=== PATIENT | female | born 1950 | race Caucasian/White ===

== ENCOUNTER → 2016-05-28 10:08 | Outpatient (CLI) | payer MEDICARE | END | disposition home or self-care (01) | LOC: D.CT 10:08 | DX: M79.605 Pain in left leg (principal); M79.604 Pain in right leg; M54.5 Low back pain ==

== ENCOUNTER → 2016-09-04 18:17 | Outpatient (CLI) | payer MEDICARE | END | disposition home or self-care (01) | LOC: D.MAMMO 13:15 | DX: Z12.31 Encounter for screening mammogram for malignant neoplasm of breast (principal) ==

== ENCOUNTER 2017-01-17 18:47 | Observation (INO) | payer MEDICARE ==
[2017-01-17 19:00] VITALS: BP 172/61
[2017-01-17] MEDS ORDERED: TOBRADEX EYE DRO5 ML EACH EYE (19:33)
[2017-01-17] MEDS ORDERED: METOPROLOL TART25 MG PO (19:36)
[2017-01-17] MEDS ORDERED: LIPITOR40 MG PO (19:37)
[2017-01-17] MEDS ORDERED: CELEXA20 MG PO (19:37)
[2017-01-17] MEDS ORDERED: PLAVIX75 MG PO (19:39)
[2017-01-17] MEDS ORDERED: REQUIP1 MG PO (19:47)
[2017-01-17] MEDS ORDERED: NEURONTIN 300300 MG PO (19:47)
[2017-01-17] MEDS ORDERED: BACLOFEN10 MG PO (19:48)
[2017-01-17] MEDS ORDERED: LYRICA50 MG PO (19:48)
[2017-01-17] MEDS ORDERED: HYDROCODON-ACE1 EAC7 PO (19:48)
[2017-01-17] MEDS ORDERED: SKELAXIN800 MG PO (19:49)
[2017-01-17] MEDS ORDERED: BAYER CHEWABLE81 MG PO (19:51)
[2017-01-17] MEDS ORDERED: CADUET 2.5 MG/11 TAB PO (20:01)
[2017-01-17] MEDS ORDERED: LOMOTIL TABLET1 TAB PO (20:02)
[2017-01-17] MEDS ORDERED: DUREZOL5 ML EACH EYE (20:03)
[2017-01-17 20:51] LABS: BASOPHILS 0.3 % (0-2); EOSINOPHILS 1.6 % (0-7); HEMATOCRIT 33.3 % (36.0-48.0); HEMOGLOBIN 10.9 g/dL (12-16); IMMATURE GRANULOCYTES 0.5 % (0-5); LYMPHOCYTES 21.2 % (15-50); MCH 30.9 pg (26.0-34.0); MCHC 32.7 g/dL (31.0-37.0); MCV 94.3 fL (80.0-100.0); MEAN PLATELET VOLUME 10.2 fL (7.4-10.4); MONOCYTES 11.5 % (2-11); NEUTROPHILS 64.9 % (40-80); PLATELET COUNT 273 10x3/uL (130-400); RBC 3.53 10x6/uL (4.00-5.40); RDW 14.3 % (11.5-14.5); WBC 7.3 10x3/uL (4.8-10.8)
[2017-01-17 21:02] LABS: ALBUMIN 3.2 g/dL (3.4-5.0); ANION GAP 12.8 mmol/L (8-16); BILIRUBIN - TOTAL 0.33 mg/dL (0.2-1.3); CALCIUM 8.9 mg/dL (8.5-10.1); CARBON DIOXIDE 27.6 mmol/L (21.0-32.0); CREATININE - SERUM 0.9 mg/dL (0.6-1.3); POTASSIUM - SERUM 3.4 mmol/L (3.5-5.1)
[2017-01-17 21:03] LABS: PROTEIN - SERUM 7.2 g/dL (6.4-8.2)
[2017-01-17 21:13] LABS: THYROID STIMULATING HORMONE 0.52 uIU/mL (0.36-3.74)
[2017-01-18] VITALS: BP 147/52
--- NOTE | 2017-01-18 00:58 | NUR ---
PT HAS [facility]WN [facility] ON FROM HOME
--- NOTE | 2017-01-18 01:51 | NUR ---
RESTING WITH EYES CLOSED. RR EVEN U/L. NO S/S OF DISCOMFORT. CL IN REACH.
--- NOTE | 2017-01-18 03:19 | NUR ---
PT SLEEPING, IV-RFA-NS @60, BED IS LOW, SRX2, CALL LIGHT IN REACH, WILL CONTINUE PLAN OF CARE
[2017-01-18 04:00] VITALS: BP 184/68
[2017-01-18 05:41] LABS: APPEARANCE CLEAR (CLEAR); COLOR YELLOW (YELLOW)
[2017-01-18 05:42] LABS: BILIRUBIN NEGATIVE (NEGATIVE); GLUCOSE NEGATIVE (NEGATIVE); KETONE NEGATIVE (NEGATIVE); LEUKOCYTE ESTERASE NEGATIVE (NEGATIVE); NITRITE NEGATIVE (NEGATIVE); PROTEIN NEGATIVE (NEGATIVE); UROBILINOGEN NORMAL (NORMAL)
[2017-01-18 06:42] LABS: CALC OSMOLALITY 278 mosm/kg (275-300); CALCIUM 9.2 mg/dL (8.5-10.1); CARBON DIOXIDE 29.1 mmol/L (21.0-32.0); CHLORIDE - SERUM 104 mmol/L (98-107); CREATININE - SERUM 0.8 mg/dL (0.6-1.3); GLUCOSE 98 mg/dL (74-106); SODIUM 140 mmol/L (136-145); UREA NITROGEN 12 mg/dL (7-18); eGFR NON AFRICAN AMERICAN 75 mL/min (90-120)
[2017-01-18 06:43] LABS: POTASSIUM - SERUM 4.1 mmol/L (3.5-5.1)
--- NOTE | 2017-01-18 07:15 | NUR ---
RECEIVED REPORT. ASSUMED CARE OF PATIENT. RESTING WITH EYES CLOSED. EASILY AROUSED. PATIENT EASILY AWAKEN, COMPLAINS OF BEING SLEEPY. ALERT/ORIENTED. NO DISTRESS. IV FLUIDS INFUSING ORDERED. CALL LIGHT WITHIN REACH.
[2017-01-18 08:57] VITALS: BP 188/76
[2017-01-18 10:12] LABS: PHOSPHOROUS 3.6 mg/dL (2.5-4.9)
--- NOTE | 2017-01-18 11:13 | NUR ---
MEDICATED FOR PAIN AT THIS TIME. NO DISTRESS. IV FLUIDS INFUSING ORDERED.
[2017-01-18 12:54] VITALS: BP 177/69
--- NOTE | 2017-01-18 16:51 | NUR ---
PATIENT VERY UPSET WITH . STATES HE IS RUDE. PATIENT REQUESTING TO SPEAK TO MANAGER TRAINING. PATIENT STATES THAT MD SAYS HE CANT DO ANYTHING FOR ME BUT WANTS ME TO STAY OVER NIGHT FOR IRON STUDIES. AWAITING FOR PATIENT TO SPEAK WITH MANAGER TRAINING AT THIS TIME WILLIAM HAS CALLED MANAGER TRAINING EMRE AND MADE HER AWARE OF THE SITUATION.
[2017-01-18 17:11] VITALS: BP 199/79
--- NOTE | 2017-01-18 17:35 | NUR ---
SPOKE WITH AND HE SAID HE WANTS PATIENT TO STAY BECAUSE SHE IS RECENTLY DX WITH ANEMIA AND HE WANTS TO FIND OUT WHY. IRON, FERRITIN, AND TIBC ORDERED. ALSO ORDERS TO GUIAC STOOLS X 2 ORDERD. STATES THAT IF PATIENT IS ADAMANT ABOUT LEAVING THEN CALL HIM BACK AND HE WILL D/C PATIENT. SPOKE WITH PATIENT AND EXPLAINED TO HER WHY HE WANTS TO KEEP HER OVERNIGHT, LABS HAVE NOW BEEN ORDERED AND THAT I NEED A STOOL SPECIMEN. DAUGHTER AT BEDSIDE AND ENCOURAGED MOM TO STAY. PATIENT STATES SHE WILL STAY. PATIENT MAKES STATEMENT THAT EVER SINCE SHE STARTED CHOLESTEROL MEDS THREE WEEKS AGO SHE HAS BEEN GOING [place] DAY AFTER DAY. PROVIDED SIDE EFFECTS OF LIPITOR TO PATIENT. PATIENT CONTENT AT THIS TIME. SITTING IN BED WITH IV FLUIDS INFUSING ORDERED. NO DISTRESS. CALL LIGHT WITHIN REACH.
[2017-01-18 17:53] LABS: % SATURATION 18 % (15-55); IRON 54 ug/dl (35-150); TOTAL IRON BIND CAPACITY 300 ug/dl (260-445); UNSAT IRON BIND CAPACITY 246 ug/dl (150-375)
--- NOTE | 2017-01-18 18:20 | NUR ---
CALLED TO CHECK ON PATIENT. INFORMED HIM THAT SHE IS GOING TO STAY. INFORMED HIM THAT ALL IRON STUDIES CAME BACK WNL AND TOLD HIM WHAT PATIENT WAS TELLING ME ABOUT "GOING [place]" FOR THE PAST 3 WEEKS SINCE BEING PLACED ON LIPITOR. MD GAVE ORDERS TO DISCONTINUE THAT MEDICATION BECAUSE IT COULD POSSIBLY BE THE REASON SHE IS FEELING DRAINED,AND GOING [place]. INFORMED PATIENT THAT THE MEDICATION WILL BE STOPPED. PATIENT THANKED THIS NURSE FOR ALL 0F HER ASSISTANCE.
--- NOTE | 2017-01-18 19:30 | NUR ---
RECEIVED REPORT, WILL ASSUME CARE OF PT, PT DENIES ANY NEEDS AT THIS TIME, BED IS LOW, SRX2, CALL LIGHT IN REACH, WILL CONTINUE PLAN OF CARE
[2017-01-18 21:09] VITALS: BP 145/53
[2017-01-19 01:02] VITALS: BP 137/50
--- NOTE | 2017-01-19 02:52 | NUR ---
ASSESSMENT COMPLETE, SEE FLOW SHEET, PT SLEEPING, BED IS LOW, SRX2, CALL LIGHT IN REACH, WILL CONTINUE PLAN OF CARE
[2017-01-19 05:12] VITALS: BP 140/53
[2017-01-19 08:00] VITALS: BP 189/71
[2017-01-19 12:00] VITALS: BP 156/70
--- NOTE | 2017-01-19 13:27 | NUR ---
ALERT AND ORIENTED X4. UPSET THE DOCTOR HASN'T BEEN AROUND TODAY. WANTS TO GO HOME. [facility], WITH [facility]. CONTINUE PLAN OF CARE AND SAFETY PRECAUTIONS.
[2017-01-19] MEDS ORDERED: BENAZEPRIL HCL10 MG PO (13:59)
[2017-01-19] MEDS ORDERED: ZPAK PO (14:42)
[2017-01-19] MEDS ORDERED: HYDRALAZINE HCL25 MG PO (14:42)
--- NOTE | 2017-01-19 16:38 | NUR ---
ALERT AND ORIENTED X4. SITTING UP IN BED. DC RT FA IV TIP INTACT. DISCHARGE INSTRUCTIONS SIGNED ON CHART. DISCHARGE PAPERS SIGNED ON CHART. DAUGHTER ARRIVES FOR TRANSPORT. ESCORT TO RIDE VIA WHEELCHAIR. REMAINS FREE FROM INJURY.
== END 2017-01-19 16:41 | disposition home or self-care (01) ==
LOC: D.M2 18:47 → OBSVTIME 18:47 → D.M2 18:47
PROVIDERS: Family Medicine Adult Medicine; ADMIT Family Medicine
DX: E87.1 Hypo-osmolality and hyponatremia (principal); E86.0 Dehydration; R41.0 Disorientation, unspecified; R10.9 Unspecified abdominal pain; D64.9 Anemia, unspecified; I12.9 Hypertensive chronic kidney disease with stage 1 through stage 4 chronic kidney disease, or unspecified chronic kidney disease; N18.3 Chronic kidney disease, stage 3 (moderate); I73.9 Peripheral vascular disease, unspecified

== ENCOUNTER → 2017-08-12 17:40 | Outpatient (CLI) | payer MEDICARE ==
[~2017-08-12 17:40] MED LIST: BACLOFEN10 MG PO; BAYER CHEWABLE81 MG PO; BENAZEPRIL HCL10 MG PO; CADUET 2.5 MG/11 TAB PO; CELEXA20 MG PO; DUREZOL5 ML EACH EYE; HYDRALAZINE HCL25 MG PO; HYDROCODON-ACE1 EAC7 PO; LIPITOR40 MG PO; LOMOTIL TABLET1 TAB PO; LYRICA50 MG PO; METOPROLOL TART25 MG PO; NEURONTIN 300300 MG PO; PLAVIX75 MG PO; REQUIP1 MG PO; SKELAXIN800 MG PO; TOBRADEX EYE DRO5 ML EACH EYE; ZPAK PO
== END | disposition home or self-care (01) ==
LOC: D.LABREF 17:40
DX: N39.0 Urinary tract infection, site not specified (principal)

== ENCOUNTER → 2017-10-24 14:09 | Outpatient (CLI) | payer MEDICARE, MEDICAID | END | disposition home or self-care (01) | LOC: D.MRI 14:09 | DX: M54.16 Radiculopathy, lumbar region (principal) ==

== ENCOUNTER → 2019-04-22 13:12 | Outpatient (CLI) | payer MEDICARE, MEDICAID | END | disposition home or self-care (01) | LOC: D.CT 13:12 | PROVIDERS: ATTEND Family Medicine | DX: R51 Headache (principal) ==

== ENCOUNTER 2020-01-14 18:18 | Emergency (ER) | payer MEDICARE, MEDICAID ==
[~2020-01-14] VITALS: Ht 165.1 cm; Wt 52.3 kg
[2020-01-14 18:33] VITALS: Ht 165.1 cm; Wt 52.3 kg
[2020-01-14 22:08] LABS: BASOPHILS 0.3 % (0-2); EOSINOPHILS 4.3 % (0-7); HEMATOCRIT 28.9 % (36.0-48.0); HEMOGLOBIN 9.1 g/dL (12-16); IMMATURE GRANULOCYTES 0.3 % (0-5); LYMPHOCYTES 14.3 % (15-50); MCH 29.4 pg (26.0-34.0); MCHC 31.5 g/dL (31.0-37.0); MCV 93.5 fL (80.0-100.0); MEAN PLATELET VOLUME 8.9 fL (7.4-10.4); MONOCYTES 15.1 % (2-11); NEUTROPHILS 65.7 % (40-80); PLATELET COUNT 280 10x3/uL (130-400); RBC 3.09 10x6/uL (4.00-5.40); RDW 15.9 % (11.5-14.5); WBC 6.5 10x3/uL (4.8-10.8)
[2020-01-14 22:19] LABS: CALC OSMOLALITY 265 mosm/kg (275-300); CALCIUM 8.4 mg/dL (8.5-10.1); CARBON DIOXIDE 27.8 mmol/L (21.0-32.0); CHLORIDE - SERUM 103 mmol/L (98-107); CREATININE - SERUM 0.8 mg/dL (0.6-1.3); GLUCOSE 82 mg/dL (74-106); POTASSIUM - SERUM 4.2 mmol/L (3.5-5.1); SODIUM 133 mmol/L (136-145); UREA NITROGEN 14 mg/dL (7-18); eGFR NON AFRICAN AMERICAN 75 mL/min (90-120)
[2020-01-14 22:21] LABS: INR 1.05 (0.85-1.17); PROTIME 13.7 SECONDS (11.6-15.0)
[2020-01-14 22:22] LABS: APTT 37.2 SECONDS (22.8-39.4)
[2020-01-14 22:25] LABS: ALBUMIN 2.7 g/dL (3.4-5.0); ALKALINE PHOSPHATASE 126 U/L (30-120); ALT (SGPT) 15 U/L (10-68); BILIRUBIN - TOTAL 0.78 mg/dL (0.2-1.3); PROTEIN - SERUM 6.4 g/dL (6.4-8.2)
[2020-01-14 22:37] LABS: D-DIMER-QUANTITATIVE 2.22 ug/mLFEU (0.20-0.54)
[2020-01-15 02:24] VITALS: BP 139/67
== END 2020-01-15 02:24 | disposition home or self-care (01) ==
LOC: D.ER 18:18
PROVIDERS: Family Medicine
DX: I97.638 Postprocedural hematoma of a circulatory system organ or structure following other circulatory system procedure (principal); I10 Essential (primary) hypertension; J44.9 Chronic obstructive pulmonary disease, unspecified

== ENCOUNTER 2020-01-15 16:04 | Emergency (ER) | payer MEDICARE, MEDICAID ==
[~2020-01-15] VITALS: Ht 165.1 cm; Wt 64.5 kg
[2020-01-15 16:06] VITALS: Ht 165.1 cm; Wt 64.5 kg
[2020-01-15 16:51] LABS: BASOPHILS 0.3 % (0-2); EOSINOPHILS 6.1 % (0-7); HEMATOCRIT 27.3 % (36.0-48.0); HEMOGLOBIN 8.8 g/dL (12-16); IMMATURE GRANULOCYTES 0.3 % (0-5); LYMPHOCYTES 16.2 % (15-50); MCH 30.2 pg (26.0-34.0); MCHC 32.2 g/dL (31.0-37.0); MCV 93.8 fL (80.0-100.0); MONOCYTES 14.7 % (2-11); NEUTROPHILS 62.4 % (40-80); PLATELET COUNT 297 10x3/uL (130-400); RBC 2.91 10x6/uL (4.00-5.40); WBC 6.2 10x3/uL (4.8-10.8)
[2020-01-15 17:15] LABS: APTT 42.9 SECONDS (22.8-39.4); INR 1.11 (0.85-1.17); PROTIME 14.2 SECONDS (11.6-15.0)
[2020-01-15 17:28] LABS: CALC OSMOLALITY 272 mosm/kg (275-300); CALCIUM 8.9 mg/dL (8.5-10.1); CARBON DIOXIDE 28.1 mmol/L (21.0-32.0); CHLORIDE - SERUM 103 mmol/L (98-107); CREATININE - SERUM 0.8 mg/dL (0.6-1.3); GLUCOSE 85 mg/dL (74-106); POTASSIUM - SERUM 4.5 mmol/L (3.5-5.1); SODIUM 137 mmol/L (136-145); UREA NITROGEN 13 mg/dL (7-18); eGFR NON AFRICAN AMERICAN 75 mL/min (90-120)
[2020-01-15 17:42] LABS: ALBUMIN 2.7 g/dL (3.4-5.0); ALKALINE PHOSPHATASE 119 U/L (30-120); ALT (SGPT) 15 U/L (10-68); BILIRUBIN - TOTAL 0.75 mg/dL (0.2-1.3); CREATINE KINASE 117 UL (21-215); MAGNESIUM - SERUM 1.8 mg/dL (1.8-2.4); PRO BNP 3942 pg/mL (0-125); PROTEIN - SERUM 6.2 g/dL (6.4-8.2); TROPONIN-I < 0.017 ng/mL (0.000-0.060)
[2020-01-15 21:45] VITALS: BP 159/75
== END 2020-01-15 22:27 | disposition home or self-care (01) ==
LOC: D.ER 16:04
PROVIDERS: Family Medicine
DX: I11.0 Hypertensive heart disease with heart failure (principal); I50.9 Heart failure, unspecified; J44.9 Chronic obstructive pulmonary disease, unspecified; R60.0 Localized edema; I97.638 Postprocedural hematoma of a circulatory system organ or structure following other circulatory system procedure; N94.89 Other specified conditions associated with female genital organs and menstrual cycle; R07.9 Chest pain, unspecified

== ENCOUNTER → 2020-10-30 15:53 | Outpatient (CLI) | payer MEDICARE, MEDICAID ==
[2020-05-22 12:52] VITALS: BMI 18.5
[~2020-10-30 15:53] MED LIST changes: +AZITHROMYCIN500 MG PO; +CELEBREX200 MG PO; +COZAAR50 MG PO; +CRESTOR10 MG PO; +DIFLUCAN100 MG PO; +EFFIENT10 MG PO; +ELIQUIS5 MG PO; +FUROSEMIDE20 MG PO; +HYDROCODON-ACE1 EA10 PO; +K-TAB10 MEQ PO; +LISINOPRIL5 MG PO; +MELATONIN 3 MG1 TAB PO; +METHOCARBAMOL500 MG PO; +MUCINEX600 MG PO; +OMNICEF300 MG PO; +THERMOTABS 1 GM1 GM PO; +VENTOLIN HFA [SP8 GM INH
== END | disposition home or self-care (01) ==
LOC: D.CT 10-03 15:00
PROVIDERS: ATTEND Family Medicine
DX: J01.80 Other acute sinusitis (principal)